=== PATIENT | male | born 1960 | race Caucasian/White ===

== ENCOUNTER → 2017-03-13 | Outpatient (CLI) | payer BC ==
--- NOTE | 2017-03-13 07:49 | US ---
EXAMINATION TYPE: US abdomen limited DATE OF EXAM: 03/13/2017 COMPARISON: NONE CLINICAL HISTORY: R10.9 Abdominal pain. N/V, diarrhea EXAM MEASUREMENTS: Liver Length: 14.7 cm Gallbladder Wall: 0.3 cm CHD: 0.3 cm Right Kidney: 9.7 x 4.4 x 4.3 cm Pancreas: tail not seen due to overlying bowel gas Liver: wnl Gallbladder: wnl Evidence for sonographic Reyes's sign: neg CBD: wnl Right Kidney: prominent column of Lonny seen Limited views of the pancreas are unremarkable. The liver is normal in size without biliary dilatation. The gallbladder is normal without evidence of cholelithiasis. Gallbladder wall measures 2.5 mm. The d istal common hepatic duct measures 3.3 mm. The right kidney is normal. The intrahepatic IVC is normal. IMPRESSION: NORMAL RIGHT UPPER QUADRANT ULTRASOUND.
== END | disposition home or self-care (01) ==
LOC: RADUSWWP 07:06
PROVIDERS: ATTEND Family Medicine
DX: R10.9 Unspecified abdominal pain (principal)
CPT/HCPCS: 76705

== ENCOUNTER → 2018-02-02 | Outpatient (CLI) | payer BC ==
--- NOTE | 2018-02-02 10:43 | NM ---
EXAMINATION TYPE: NM stress cardiolite complete DATE OF EXAM: 02/02/2018 COMPARISON: NONE HISTORY: Chest pain, shortness of breath and hypertension. TECHNIQUE: After the intravenous administration of 9.9 mCi Tc 99m Sestamibi - Rest images obtained 4 5 minutes post injection. The patient exercised using a WYATT protocol and 1 minute prior to peak e xercise was injected with 24.7 mCi Tc 99m Sestamibi - Stress images obtained 10 minutes post injectio n. FINDINGS: Targeted heart rate was achieved during performance of the study. Review of stress and rest SPECT juan ges demonstrates no distinct perfusion abnormality. Gated analysis shows normal wall motion with an estimated left ventricular ejection fraction of 66 %. TID is within normal limits calculated at 0.75. IMPRESSION: No scintigraphic evidence for reversible ischemia estimated left ventricular ejection fraction 66%.
--- NOTE | 2018-02-02 18:02 | P.STRESS ---
- Stress Test Note Stress Test Results/Findings: Exam Performed: NM stress cardiolite complete Exam Date: 02/02/18 Reason for Exam: SOB Height: 5 ft 9 in Weight: 74.843 kg Protocol: WYATT Stage: 3 Duration of Exercise: 7:00 Resting Heart Rate: 74 Resting Blood Pressure: 146/97 Maximum Achieved Heart Rate: 146 Maximum Achieved Blood Pressure: 199/77 85% PMHR: 137 100% PMHR: 161 METS: 8.5 Technologist Comment: Stress Test Results/Findings: This is a 57-year-old gentleman with history of hypertension, symptoms of dizziness and chest pain being evaluated Cardec status. Stress data: Baseline EKG showed sinus rhythm with nonspecific went and crit conduction delay and incomplete treadmill branch block pattern. Blood pressure at rest is 146/97 at pulse rate of 74. Patient walked on the Wyatt protocol for 7 minutes achieving a maximum rate of 146 with a blood pressure 190/91. EKGs taken during and after the exercise did not reveal any significant changes from the baseline. Final impression #1. Negative stress test #2 patient did not express any chest pain #3. No arrhythmias were detected. #4. Report on the nuclear images to begin by the radiologist.
== END | disposition home or self-care (01) ==
LOC: RADNMMAIN 08:11
PROVIDERS: ATTEND Family Medicine
DX: R06.09 Other forms of dyspnea (principal); R53.83 Other fatigue
CPT/HCPCS: 93017; 78452; A9500

== ENCOUNTER → 2021-02-22 | Outpatient (CLI) | payer BC ==
--- NOTE | 2021-02-22 10:29 | CT ---
EXAMINATION TYPE: CT sinus wo con DATE OF EXAM: 02/22/2021 COMPARISON: None HISTORY: 60-year-old male J3 2.9, acute sinusitis, Congestion, drainage and facial pressure. CT DLP: 594 mGycm Automated exposure control for dose reduction was used. TECHNIQUE: Noncontrast axial views of the paranasal sinuses were obtained. Coronal reconstructions pe rformed. FINDINGS: PARANASAL SINUSES: There is an 8 mm polyp or mucosal retention cyst along the medial wall of the left maxillary sinus. Trace mucosal thickening anterior ethmoid air cells. Frontal and sphenoid sinuses are well pneumatized. frontal, ethmoid, maxillary and sphenoid sinuses are clear and well pneumatized. There is no air-fluid level. Reactive gloria- osteogenesis is not seen. There is no destruction of the osseous steele of the paranasal sinuses. THE NASAL CAVITY: The osteomeatal complexes are patent. Slight rightward nasal septal deviation. The imaged brain and orbits are normal in appearance. Visualized mastoid air cells and middle ear cavities are well pneumatized. Prominent cerumen impacted in the bilateral external auditory canals. Reformatted images confirm above findings. IMPRESSION: 1. A small 8 mm polyp or mucosal retention cyst within the left maxillary sinus. Trace mucosal thicke sophie anterior ethmoid air cells. 2. Slight rightward nasal septal deviation. 3. Incidental prominent cerumen impacted in the bilateral external auditory canals
== END | disposition home or self-care (01) ==
LOC: RADCTMAIN 08:46
PROVIDERS: ATTEND Otolaryngology
DX: J34.2 Deviated nasal septum (principal); H61.23 Impacted cerumen, bilateral
CPT/HCPCS: 70486

== ENCOUNTER → 2024-08-28 | Outpatient (CLI) | payer MEDICARE ==
--- NOTE | 2024-08-28 12:04 | CA ---
Exercise Stress Test Report Name: Mitchell Grimes Exam Date: 08/28/2024 11:21 Exam Location: [place] Stress Ht (in): 68 Wt (lb): 180 BSA: 1.95 Ordering Phys: Albert Judd MD Referring Phys: Any Green [facility] Technologist: Jeison Wallace Age: 63 Gender: M : 1960 Procedure CPT: Indications: R94.31 ABNORMAL ELECTROCARDIOGRAM [ECG] [EKG] ICD-10 Codes: Patient History: ABN ECG Medications: NONE Meds past 24 hrs: Pretest Chest Pain: STRESS TEST Onofre Protocol Exercise Duration (min:sec): 06:[address] Depressions (mm): Angina Score: Argueta Score: Resting HR (bpm): 82 Peak HR (bpm): 148 Resting BP (mmHg): 160 / 90 Peak BP (mmHg): 202 / 76 MPHR: 155 Target HR: 132 % MPHR: 95 METS: 7.4 Total Dose: Peak Dose: Atropine: Double Product: 23198 BP Response: Stress Termination: TARGET HR/MAX EXERTION Stress Symptoms: NO SYMPTOMS Stress Summary: ECG ANALYSIS Resting ECG: Normal sinus rhythm, normal axis, incomplete right bundle branch block Stress ECG: No significant ST-T wave changes are nondiagnostic for ischemia by ST segment analysis. No significant arrhythmias or ectopic beats noticed during the stress test CONCLUSIONS Fair exercise tolerance for age achieving 7.4 METS Hypertensive at baseline with hypertensive response to exercise Normal clinical response to exercise. Nonischemic ECG response to exercise Overall normal treadmill stress test Dr Alberto Rodriguez (Electronically Signed) Final Date: 28 August 2024 12:03
== END | disposition home or self-care (01) ==
LOC: RADNMMAIN 10:07
PROVIDERS: ATTEND Family Medicine
DX: I10 Essential (primary) hypertension (principal); R94.31 Abnormal electrocardiogram [ECG] [EKG]
CPT/HCPCS: 93017